=== PATIENT | male | born 2000 | race African-American/Black ===

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

== ENCOUNTER 2020-08-17 20:18 | Emergency (ER) | payer OTHER ==
[2020-08-17] MEDS ORDERED: Lidocaine 2% 20 ml MDV ONE (20:34)
[2020-08-17] MEDS ORDERED: Lidocaine 2% w/Epinephrine 1:200K 20 ML VIAL ONE (20:35)
--- NOTE | 2020-08-17 20:51 | RAD ---
RIGHT WRIST 3 VIEWS: HISTORY: Right wrist pain, injury FINDINGS: No acute fracture or dislocation is identified. If symptoms do not improve, a follow-up exam should be obtained in 7-10 days.
--- NOTE | 2020-08-17 20:55 | RAD ---
XR Elbow Rt 4 View STANDARD HISTORY: Injury, right elbow pain FINDINGS: No fracture or dislocation is identified.
[2020-08-17] MEDS ORDERED: Ibuprofen 800 MG TAB ONE (21:30)
[2020-08-17] MEDS ORDERED: Bacitracin 1 PK ONE (21:30)
[2020-08-17] MEDS ORDERED: Acetaminophen 500 MG TAB ONE (21:30)
[2020-08-17] MEDS ORDERED: Sodium Chloride Irrig Solution 250 ML ONE (21:46)
== END 2020-08-17 21:36 | disposition home or self-care (01) ==
LOC: MADERS 20:18
DX: S01.81XA Laceration without foreign body of other part of head, initial encounter (principal); S01.21XA Laceration without foreign body of nose, initial encounter; S61.412A Laceration without foreign body of left hand, initial encounter; F17.210 Nicotine dependence, cigarettes, uncomplicated; V86.99XA Unspecified occupant of other special all-terrain or other off-road motor vehicle injured in nontraffic accident, initial encounter
CPT/HCPCS: 12001; 12014

== ENCOUNTER 2023-10-08 20:45 | Emergency (ER) | payer OTHER | END 2023-10-08 21:24 | disposition home or self-care (01) | LOC: MADERS 20:45 | DX: Z00.00 Encounter for general adult medical examination without abnormal findings (principal) | CPT/HCPCS: 99281 ==

== ENCOUNTER 2023-10-24 18:43 | Emergency (ER) | payer OTHER | END 2023-10-24 19:11 | disposition home or self-care (01) | LOC: MADERS 18:43 | DX: R03.0 Elevated blood-pressure reading, without diagnosis of hypertension (principal); F17.210 Nicotine dependence, cigarettes, uncomplicated | CPT/HCPCS: 99283 ==

== ENCOUNTER 2024-01-24 17:23 | Emergency (ER) | payer OTHER | END 2024-01-24 17:58 | disposition home or self-care (01) | LOC: MADERS 17:23 | DX: T59.811A Toxic effect of smoke, accidental (unintentional), initial encounter (principal); F17.210 Nicotine dependence, cigarettes, uncomplicated | CPT/HCPCS: 99283 ==